=== PATIENT | female | born 1955 | race Caucasian/White ===

== ENCOUNTER 2020-09-29 12:52 | Outpatient (CLI) | payer MEDICARE, BC, SELFPAY ==
--- NOTE | ~2020-09-29 | DEXA_ITS ---
Bone Density Report Name: Rupa Lovell Age: 65 Sex: Female Ethnicity: White Date of : 1955 Indication: osteopenia; height loss; prior fracture; asthma or emphysema; postmenopausal Referring Provider: ANDRA CHILDERS Study: Bone densitometry was performed. Exam Date: September 29, 2020 Accession number: [id number] Bone Density: Region BMD T-score Z-score Classification AP Spine (L1-L4) 0.765 -2.6 -0.8 Osteoporosis Femoral Neck (Left) 0.655 -1.7 -0.2 Osteopenia Total Hip (Left) 0.795 -1.2 0.1 Osteopenia Total Hip Bilateral Avg 0.796 -1.2 0.1 Osteopenia Femoral Neck (Right) 0.654 -1.8 -0.2 Osteopenia Total Hip (Right) 0.795 -1.2 0.1 Osteopenia World Health Organization criteria for BMD impression classify patients as: Normal (T-score at or above -1.0), Osteopenia (T-score between -1.0 and -2.5), or Osteoporosis (T-score at or below -2.5). 10-year Fracture Risk: FRAX not reported because: Some T-score for Spine Total or Hip Total or Femoral Neck at or below -2.5 Previous Exams: Region Exam Age BMD T-score BMD Change BMD Change Date g/cm2 vs Baseline vs Previous AP Spine(L1-L4) 09/29/2020 65 0.765 -2.6 -0.145(-16.0%) -0.040(-4.9%)# 11/30/2017 62 0.804 -2.2 -0.106(-11.6%) -0.013(-1.6%)# 01/21/2011 55 0.817 -2.1 -0.093(-10.2%) -0.093(-10.2%) 04/05/2008 53 0.910 -1.2 Total Hip(Left) 09/29/2020 65 0.795 -1.2 -0.102(-11.4%) -0.031(-3.8%)# 11/30/2017 62 0.827 -0.9 -0.071(-7.9%)# -0.046(-5.2%)# 01/21/2011 55 0.872 -0.6 -0.026(-2.8%)# -0.026(-2.8%)# 04/05/2008 53 0.898 -0.4 Total Hip(Right) 09/29/2020 65 0.795 -1.2 -0.079(-9.1%)# -0.022(-2.7%)# 11/30/2017 62 0.817 -1.0 -0.058(-6.6%)# -0.058(-6.6%)# 01/21/2011 55 0.875 -0.6 0.000(0.0%)# 0.000(0.0%)# 04/05/2008 53 0.875 -0.6 *Denotes significance at 95% confidence level, LSC for AP Spine = 0.022 g/cm2, LSC for Total Hip = 0.027 g/cm2 Clinical Information Provided by Patient: Has had a low trauma fracture Has used the following medications: Vitamin D, Calcium Has the following medical conditions: Asthma or Emphysema Patient maximum height was 62 Menopause Age: 57 Drinks caffeinated beverages Onset of menses at age 11 Number of children 3 Impression: The patient has established osteoporosis, based on the Total Spine T-score and the existence of a prior fracture. The patient has risk factors, including: previous fracture. No significant
== END 2020-09-29 12:53 | disposition home or self-care (01) ==
PROVIDERS: Visit Provider Obstetrics & Gynecology
DX: Z78.0 Asymptomatic menopausal state (principal); M81.0 Age-related osteoporosis without current pathological fracture; M85.852 Other specified disorders of bone density and structure, left thigh; M85.851 Other specified disorders of bone density and structure, right thigh
CPT/HCPCS: 77080

== ENCOUNTER 2021-10-01 17:49 | Emergency (ER) | payer MEDICARE, BC, SELFPAY ==
[2021-10-01 18:01] VITALS: BP 148/67; PULSE 99; RESP 18; TEMP 36.7; O2SAT 98
--- NOTE | 2021-10-01 18:23 | ED.GENADULT ---
HPI - General Adult General Chief complaint: Urogenital-Female Stated complaint: uti complaint History of Present Illness HPI narrative: Patient is a 66-year-old female presents to the [facility] care via POV for evaluation of urinary symptoms that began 2 to 3 days ago. Additionally, she reports dysuria, urinary frequency, and low back pain. Right side is worse than left. No relief with ibuprofen. Denies alleviating aggravating factors. History of UTIs. Today's symptoms are similar to previous UTIs. Last UTI was approximately 2 years ago. Related Data Home Medications Medication Instructions Recorded Confirmed ascorbic acid (vitamin C) 1,500 mg 1,500 mg PO Q12H 10/07/19 10/01/21 tablet,extended release cetirizine 10 mg capsule (Zyrtec) 10 mg PO DAILY 10/07/19 10/01/21 qqxpbdia-ygd-utkex acid 0.4 1 tablet PO DAILY 10/07/19 10/01/21 mg-lycopene 300 mcg-lutein 250 mcg tablet (Centrum Silver) calcium carbonate 500 mg-vitamin 1 tablet PO DAILY 12/12/19 10/01/21 D3 3.125 mcg (125 unit) tablet cholecalciferol (vitamin D3) 50 50 mcg PO DAILY 12/22/20 10/01/21 mcg (2,000 unit) capsule mecobalamin (vitamin B12) 5,000 5,000 mcg PO DAILY 12/22/20 10/01/21 mcg lozenge zinc 50 mg tablet 50 mg PO DAILY 12/22/20 10/01/21 Allergies Allergy/AdvReac Type Severity Reaction Status Date / Time No Known Allergies Allergy Verified 10/01/21 18:17 Review of Systems Review of Systems: Denies history of pyelonephritis and renal calculi. Pertinent negatives: fever, chills, sweats, change in appetite, poor p.o. intake, malaise, recent weight loss, myalgias, lymphadenopathy, headache, dizziness, STD exposure, painful intercourse, abdominal pain, constipation, nausea, vomiting, diarrhea, abdominal cramping, dysuria, hematuria, urinary urgency, urinary incontinence, vaginal bleeding/discharge, shortness of breath, chest pain, and heart palpitations/murmurs. [facility] Past Medical History Medical History Asthma Deviated septum Vaginal delivery x 3 Family History Family History Mother Hypertension Family history of elevated blood lipids Family history of coronary artery disease Father Family history of coronary artery disease Grandparent Family history of malignant neoplasm of male breast Social History Social History Smoking status: Never smoker Second hand tobacco smoke exposure: No Alcohol intake: never Substance use: never Substance use type: does not use Spiritual care concerns: No Exam Narrative: GENERAL: Well-appearing, well-nourished, and in no acute distress. HEAD: Normocephalic, atraumatic. NECK: Supple. No lymphadenopathy or nuchal rigidity. CHEST: Lung sounds are clear to auscultation in bilateral lung sandoval. No respiratory distress. HEART: Regular rate and rhythm. No murmur, gallop, or rub heard. ABDOMEN: Soft, non-tender, non-distended, normal active bowel sounds in all quadrants. No guarding. No rebound tenderness. No pulsatile or palpable abdominal mass(es). No CVATGU: Bladder non-distended, non-tender EXTREMITIES: Normal range of motion. No edema. SKIN: Warm, dry, no rash. No skin color changes. Excellent turgor. NEURO: No focal deficits. Alert and oriented x3. SPECIAL OBSERVATIONS: Smiling. Laughing. No evidence of discomfort. Course Course Level of Care: Express Care Visit Vital Signs Vital signs: Vital Signs Temperature 98.0 F 10/01/21 18:01 Pulse Rate 99 10/01/21 18:01 Respiratory Rate 18 10/01/21 18:01 Blood Pressure 148/67 H 10/01/21 18:01 Pulse Oximetry 98 10/01/21 18:01 Oxygen Delivery Room Air 10/01/21 18:01 Temperature 98.0 F 10/01/21 18:01 Pulse Rate 99 10/01/21 18:01 Respiratory Rate 18 10/01/21 18:01 Blood Pressure 148/67 H 10/01/21
== END 2021-10-01 18:33 | disposition home or self-care (01) ==
PROVIDERS: Emergency Provider Nurse Practitioner Family; PCP Nurse Practitioner
DX: N30.90 Cystitis, unspecified without hematuria (principal); J45.909 Unspecified asthma, uncomplicated
CPT/HCPCS: 81003; 87086; 99213; G0463

== ENCOUNTER 2022-01-03 07:47 | Outpatient (CLI) | payer MEDICARE, BC, SELFPAY ==
--- NOTE | ~2022-01-03 | XR_ITS ---
EXAMINATION: XR foot LT standing 2V, XR foot RT standing 2V DATE: 01/03/2022 08:20 INDICATION: Unspecified osteoarthritis with multiple joint pain at the bilateral feet. TECHNIQUE: 1. Dorsoplantar and lateral views of the left foot were obtained. 2. Dorsoplantar and lateral views of the right foot were obtained. COMPARISON: None. FINDINGS: Mild left hallux valgus. There is also mild varus angulation at the right third and fourth metatarsop halangeal joints. No fracture. Polyarticular osteoarthritis at both feet, moderate severity at the ri ght navicular cuneiform, left first metatarsophalangeal and left second and third tarsal metatarsal j oints and mild at many of the remaining joints throughout the bilateral feet. No erosions to suggest inflammatory arthritis. Small bilateral Achilles and plantar calcaneal spurs. Soft tissues are unrema rkable. IMPRESSION: 1. Mild to moderate polyarticular osteoarthritis in the bilateral feet. No erosions to suggest inflam matory arthritis. 2. Bilateral Achilles and plantar calcaneal spurs. Reviewed, dictated and finalized at location A. AYS OPERATIONS SPECIALIST IMPRESSION: 1. Mild to moderate polyarticular osteoarthritis in the bilateral feet. No eros ions to suggest inflammatory arthritis. 2. Bilateral Achilles and plantar calcaneal spurs.
--- NOTE | ~2022-01-03 | XR_ITS ---
EXAMINATION: HAND-KULDEEP ARTHRITIS 3+VIEWS DATE: 01/03/2022 08:20 INDICATION: Osteoarthritis with multiple joint pain TECHNIQUE: Posteroanterior, lateral, and oblique views of the left and of the right hands as well as a ballcatchers view of both hands were obtained. COMPARISON: None. FINDINGS: Mild swan-neck deformity at the left fourth digit. Alignment is otherwise normal at both hands. No fr actures. Typical distribution of polyarticular osteoarthritis at both hands characterized by nonunifo rm joint space narrowing and marginal osteophytes. There is severe at the left first carpometacarpal joint, moderate severity at the right first carpometacarpal joint and mild to moderate severity at th e interphalangeal joints with distal predominance. Additional mild osteoarthritis at the bilateral ra diocarpal joints. No erosions to suggest an inflammatory arthritis. IMPRESSION: 1. Typical distribution of polyarticular osteoarthritis, severe at the left first carpometacarpal dena nt and otherwise mild to moderate at the bilateral hands. Reviewed, dictated and finalized at location A. AL SPRAYER IMPRESSION: 1. Typical distribution of polyarticular osteoarthritis, severe at the left fir st carpometacarpal joint and otherwise mild to moderate at the bilateral hands.
--- NOTE | ~2022-01-03 | XR_ITS ---
EXAM: XR sacroiliac joints min 3V DATE: 01/03/2022 08:20 HISTORY: M19.90 Unspecified OA,MULT JOINT PAIN SINCE MAR 2020 . COMPARISON: None available. FINDINGS: Decreased mineralization. No fracture or dislocation. No lytic or blastic lesion. Mild scl erosis and osteophytosis at the bilateral SI joints. Short focus of fusion at the superior margin of the right SI joint. No erosion or periosteal change. Soft tissues within normal limits. IMPRESSION: Osteopenia. Mild bilateral sacroiliitis. Reviewed, dictated and finalized at location K. EGNATING MACHINE OPERATOR
== END 2022-01-03 07:48 | disposition home or self-care (01) ==
PROVIDERS: PCP Nurse Practitioner; Visit Provider Internal Medicine
DX: M85.88 Other specified disorders of bone density and structure, other site (principal); M53.3 Sacrococcygeal disorders, not elsewhere classified; M19.041 Primary osteoarthritis, right hand; M19.042 Primary osteoarthritis, left hand; M19.071 Primary osteoarthritis, right ankle and foot; M19.072 Primary osteoarthritis, left ankle and foot
CPT/HCPCS: 72202; 73130; 73620

== ENCOUNTER 2022-10-21 08:40 | Emergency (ER) | payer MEDICARE, BC, SELFPAY ==
--- NOTE | 2022-10-21 08:51 | ED.FEMALEGU ---
HPI - Female Genitourinary General Chief complaint: Urogenital-Female Stated complaint: Female Urogenital Time Seen by Provider: 10/21/22 09:08 Source: patient, RN notes reviewed and old records reviewed Mode of arrival: ambulatory Limitations: no limitations History of Present Illness HPI Narrative: 67-year-old female presents to the [facility] with concerns for a UTI. Patient reports urgency, frequency and burning since last night. Denies fevers. Denies abdominal pain or chest pain. No CVA tenderness. No treatment prior to arrival MD elicited complaint: UTI Related Data Home Medications Medication Instructions Recorded Confirmed ascorbic acid (vitamin C) 1,500 mg 1,500 mg PO Q12H 10/07/19 10/21/22 tablet,extended release cetirizine 10 mg capsule (Zyrtec) 10 mg PO DAILY 10/07/19 10/21/22 hyznlenj-uxf-huzmw acid 0.4 1 tablet PO DAILY 10/07/19 10/21/22 mg-lycopene 300 mcg-lutein 250 mcg tablet (Centrum Silver) calcium carbonate 500 mg-vitamin 1 tablet PO DAILY 12/12/19 10/21/22 D3 3.125 mcg (125 unit) tablet cholecalciferol (vitamin D3) 50 50 mcg PO DAILY 12/22/20 10/21/22 mcg (2,000 unit) capsule mecobalamin (vitamin B12) 5,000 5,000 mcg PO DAILY 12/22/20 10/21/22 mcg lozenge zinc 50 mg tablet 50 mg PO DAILY 12/22/20 10/21/22 fluticasone furoate 100 1 inh inhalation DAILY 01/05/22 10/21/22 mcg-vilanterol 25 mcg/dose inhalation powder (Breo Ellipta) Allergies Allergy/AdvReac Type Severity Reaction Status Date / Time No Known Allergies Allergy Verified 10/21/22 08:48 Review of Systems Review of Systems: All systems reviewed & are unremarkable except as noted in HPI and below Constitutional: Constitutional: Reports no additional constitutional complaints Eyes: Eyes: Reports no additional eye complaints ENT: Reports system reviewed and no additional complaints, except as documented Cardiovascular: Cardiovascular: Reports no additional cardiovascular complaints, Denies chest pain and Denies dyspnea Respiratory: Respiratory: Reports no additional respiratory complaints, Denies chest congestion, Denies cough and Denies dyspnea Gastrointestinal: Gastrointestinal: Reports no additional gastrointestinal complaints, Denies abdominal pain, Denies nausea and Denies vomiting Genitourinary: Genitourinary: Reports as per HPI, Reports dysuria and Reports urinary urgency Musculoskeletal: Musculoskeletal: Reports no additional musculoskeletal complaints Integumentary/Breasts: Skin/Breast: Reports system reviewed and no additional complaints, except as docu Neurologic: Reports system reviewed and no additional complaints, except as documented Psychiatric: Psychiatric: Reports no additional psychiatric complaints Allergic/Immunologic: Allergic/Immunologic: Reports no additional allergic/immunologic complaints [facility] Past Medical History Medical History Allergies Asthma Bilateral sacroiliitis Deviated septum Inflammatory arthritis Vaginal delivery x 3 Family History Family History Mother Hypertension Family history of elevated blood lipids Family history of coronary artery disease Father Family history of coronary artery disease Grandparent Family history of malignant neoplasm of male breast Social History Social History Smoking status: Never smoker Second hand tobacco smoke exposure: No Alcohol intake: never Substance use: never Substance use type: does not use Living arrangements: alone Occupation/Education: retired Spiritual care concerns: No Comments At the time of my signature, I reviewed and agree with the nursing past medical, surgical, social, and family history. There is no relevant family history pertinent to the patient complaint. Exam Const: General: cooperative, healthy ap
[2022-10-21 08:56] VITALS: BP 134/64; PULSE 82; RESP 18; TEMP 36.4; O2SAT 100
== END 2022-10-21 09:17 | disposition home or self-care (01) ==
PROVIDERS: Emergency Provider Nurse Practitioner; PCP Nurse Practitioner
DX: N30.01 Acute cystitis with hematuria (principal); J45.909 Unspecified asthma, uncomplicated; M13.80 Other specified arthritis, unspecified site
CPT/HCPCS: 81003; 87077; 87086; 87186; 99213; G0463

== ENCOUNTER 2024-03-13 14:01 | Outpatient (CLI) | payer MEDICARE, BC, SELFPAY ==
--- NOTE | ~2024-03-13 | XR_ITS ---
CHEST RADIOGRAPH, PA AND LATERAL CLINICAL HISTORY: Cough . COMPARISON: None available TECHNIQUE: PA and lateral views of the chest. FINDINGS The cardiomediastinal silhouette is unremarkable. The lungs are clear. Visualized osseous structures and soft tissues are unremarkable. IMPRESSION: No focal infiltrate or effusion. Reviewed, dictated and finalized at location A. STMAS TREE GRADER
== END 2024-03-13 14:02 | disposition home or self-care (01) ==
LOC: MICIMG 14:06
PROVIDERS: PCP Allergy & Immunology; Visit Provider Allergy & Immunology
DX: R05.9 Cough, unspecified (principal); J45.909 Unspecified asthma, uncomplicated
CPT/HCPCS: 71046